=== PATIENT | male | born 1945 | race Caucasian/White ===

== ENCOUNTER 2020-03-20 05:05 | Inpatient (IN) ==
--- NOTE | 2020-02-27 21:26 | PAT Medication Instructions ---
Medication Instructions Date of Service February 27, 2020 Home Medications aspirin [Aspir-81] 81 mg PO DAILY mzussnvz-rjzbd-zyw3-C-diana-bor [Jmmrgnjxnty-Exzkf-QQT Complex] 2 tab PO DAILY metoprolol succinate 125 mg PO HS multivitamin 1 cap PO DAILY tamsulosin [Flomax] 0.4 mg PO QDL turmeric 500 mg PO DAILY STOP taking 2 weeks before surgery (or as soon as possible if surgery is within 2 weeks) xsvogato-wwgbq-uny3-C-diana-bor [Nooeorosbrt-Imjjx-RGN Complex] 2 tab PO DAILY turmeric 500 mg PO DAILY DO NOT take the morning of surgery multivitamin 1 cap PO DAILY Take morning of surgery With a small sip of water, OTHERWISE NOTHING TO EAT OR DRINK AFTER MIDNIGHT: aspirin [Aspir-81] 81 mg PO DAILY tamsulosin [Flomax] 0.4 mg PO QDL Take evening before surgery metoprolol succinate 125 mg PO HS Other Notes If you have any questions please call us at [phone] or [phone] or [phone] or [phone]
--- NOTE | 2020-02-29 14:30 | Anesthesiology Consultation ---
Date of Service February 29, 2020 Assessment & Plan (1) Encounter for pre-operative examination: - Awaiting review of preop testing (hgba1c). - Awaiting surgeon-ordered PCP clearance scheduled 03/01 (Dr. Reyes) Per PAT assessment on 02/28: Travel screen- Lives in [place]. Traveled to [facility] to visit family 2 weeks ago. Wears mask in public. DOS will be sufficiently >2 weeks after travel. No known COVID-19 positive contacts. No current COVID-19 related symptoms. No hx of COVID-19 testing. Patient scheduled for preop protocol COVID-19 testing on 03/15 ([facility]). Awaiting results. Chart Review Chart Review: Patient seen in Pre Admission Testing Teaching & Discussion Pre-Anesthesia Teaching/Discussion Notes: Instructed NPO after midnight before surgery,except medications with 15 cc of water. Medication instructions provided according to the PAT guidelines. History Surgery Operation Date: 03/20/20 12:25 Proposed Procedures p Right Anterior Total Hip Arthroplasty - David Swann DO Height/Weight Height: 5 ft 8 in Weight: 91.9 kg Allergies Allergy/AdvReac Type Severity Reaction Status Date / Time levothyroxine AdvReac Unknown dyspepsia Verified 02/29/20 14:50 Medications Home Medications Medication Instructions Recorded Confirmed Last Taken aspirin [Aspir-81] 81 mg PO DAILY 02/22/20 02/22/20 Unknown ejjzhynv-pxpte-pbe8-C-diana-bor 2 tab PO DAILY 02/22/20 02/22/20 Unknown [Cohcjutrxju-Ywzsu-SKC Complex] metoprolol succinate 125 mg PO QAM 02/22/20 02/29/20 Unknown multivitamin 1 cap PO DAILY 02/22/20 02/22/20 Unknown tamsulosin [Flomax] 0.4 mg PO QDL 02/22/20 02/22/20 Unknown turmeric 500 mg PO DAILY 02/22/20 02/22/20 Unknown Past Medical History Medical History HTN (hypertension) Osteoarthritis Thyroid disease borderline low, hx medication but since discontinued as patient "did not tolerate"/under surveillance Exercise / Class Metabolic Activity II 4-5 Yardwork/Stairs/Walk up hill Past Surgical History Surgical History History of colonoscopy History of hernia surgery [place] teeth removed Past Anesthesia History No Family Hx of Anesthesia Complications and Other (disorientation upon anesthesia emergence with remote surgery) History of PONV No Hx of PONV and No Hx of Motion Sickness Social History Smoking Status: Never smoker Do You Dip or Chew Tobacco: No Alcohol type: wine and hard liquor alcohol intake frequency: a few times a week Hx Substance Use: No substance use type: does not use Review of Systems Patient denies chest pain, shortness of breath, dyspnea on exertion, fever, chills, cough, wheezing, palpitations. Physical Exam Vital Signs VITALS BP 137/66 P 72 TEMP 98.0 SP02 95%RA RESP 16 PHYSICAL Full neck and c-spine range of motion. Full TMJ range of motion. TMD 3 finger breaths Mallampati Score 1 Dentition: intact, crown on molar Lungs: clear throughout to auscultation Cardiac: regular rate and rhythm, no murmurs noted Spine: normal Carotid arteries: negative bruit Extremities: no edema Testing Laboratory Results 02/29/20 15:00 02/29/20 15:00 PT 10.7 Seconds (9.0-12.0) 02/29/20 15:00 INR 1.0 (0.9-1.1) 02/29/20 15:00 APTT 30.5 Seconds (21.0-31.0) 02/29/20 15:00 Urine Color Yellow 02/29/20 15:00 Urine Appearance Clear (Clear) 02/29/20 15:00 Urine pH 5.0 (4.5-7.5) 02/29/20 15:00 Ur Specific Phelps 1.020 (1.000-1.030) 02/29/20 15:00 Urine Protein Negative (Negative) 02/29/20 15:00 Urine Glucose (UA) Negative (Negative) 02/29/20 15:00 Urine Ketones Negative (Negative) 02/29/20 15:00 Urine Nitrite Negative (Negative) 02/29/20 15:00 Ur Leukocyte Esterase Negative (Negative) 02/29/20 15:00 Blood Type O Positive 02/29/20 15:00 Antibody Screen NEGATIVE 02/29/20 15:00 02/29/20 TSH 4.640 (upper limit of normal, will forward thyroid studies to PCP for their reference) Free T4 1.09 Electrocardiogram Date: 02/29/20 NSR at 61bpm. unconfirmed report* Chest X-Ray Date: 02/29/20 Findings: + NAD
--- NOTE | 2020-02-29 15:27 | XRay Report ---
XR chest Pre-admission PA/Lat CLINICAL HISTORY: PAT preoperative COMPARISON STUDY: No previous studies for comparison. FINDINGS: The bones soft tissues and hemidiaphragms are normal. The cardiomediastinal silhouette is n ormal. The lungs are clear. The pulmonary vasculature is normal. IMPRESSION: Negative chest. ACT 112: Negative or not required by law. The above report was generated using voice recognition software. It may contain grammatical, syntax or spelling errors. Electronically signed by: Bandar Ralph M.D. 02/29/2020 3:26 PM
[2020-02-29 15:40] LABS: Appearance Urine Clear (Clear); Bilirubin Urine Negative (Negative); Blood Urine Negative (Negative); Color Urine Yellow; Glucose Urine UA Negative (Negative); Ketones Urine Negative (Negative); Leukocyte Esterase Urine Negative (Negative); Nitrite Urine Negative (Negative); Protein Urine Negative (Negative); Urobilinogen Urine Negative (Negative)
[2020-02-29 15:41] LABS: Basophils # (auto) 0.03 K/uL (0-0.2); Basophils % (auto) 0.4 %; Eosinophils # (auto) 0.21 K/uL (0-0.5); Eosinophils % (auto) 2.7 %; Hematocrit (blood only) 47.9 % (42-52); Immature Granulocytes # (auto) 0.02 K/uL (0.00-0.02); Immature Granulocytes % (auto) 0.3 %; Lymphocytes # (auto) 2.17 K/uL (1.2-3.4); Lymphocytes % (auto) 27.5 %; Mean Corpuscular Hemoglobin 30.9 pg (25-34); Mean Corpuscular Hgb Conc 35.5 g/dL (32-36); Mean Corpuscular Volume 87.1 fL (80-100); Mean Platelet Volume 10.2 fL (7.4-10.4); Monocytes # (auto) 0.67 K/uL (0.11-0.59); Monocytes % (auto) 8.5 %; Neutrophils # (auto) 4.79 K/uL (1.4-6.5); Neutrophils % (auto) 60.6 %; Platelet Count 204 K/uL (130-400); RDW Coefficient of Variation 12.8 % (11.5-14.5); RDW Standard Deviation 40.7 fL (36.4-46.3); White Blood Count 7.89 K/uL (4.8-10.8)
[2020-02-29 15:48] LABS: Albumin Level 3.9 gm/dl (3.4-5.0); BUN Creatinine Ratio 16.1 (10-20); Calcium 9.5 mg/dl (8.5-10.1); Creatinine Clr Calc Pharmacy 65.4 ml/min; Est GFR (African American) 77.1; Est GFR (Non-African American) 66.5; Potassium 4.4 mmol/L (3.5-5.1)
[2020-02-29 15:58] LABS: Partial Thromboplastin Ratio 1.1; Partial Thromboplastin Time 30.5 Seconds (21.0-31.0); Prothrombin Time 10.7 Seconds (9.0-12.0)
[2020-02-29 15:59] LABS: T4 Free Thyroxine 1.09 ng/dl (0.8-1.6); Thyroid Stimulating Hormone 4.64 uIu/ml (0.300-4.500)
[2020-03-01 06:44] LABS: Estimated Average Glucose 103 mg/dl; Hemoglobin A1C 5.2 % (4.5-5.6)
--- NOTE | 2020-03-01 15:22 | Electrocardiogram Report ---
Test Reason : Blood Pressure : / mmHG Vent. Rate : 061 BPM Atrial Rate : 061 BPM P-R Int : 150 ms QRS Dur : 086 ms QT Int : 440 ms P-R-T Axes : 040 042 008 degrees QTc Int : 442 ms Normal sinus rhythm Normal ECG No previous ECGs available Confirmed by Jignesh Meadows ([id number]) on 03/01/2020 3:22:25 PM Referred By: David Swann Confirmed By:Shakir Meadows
--- NOTE | 2020-03-18 10:50 | History & Physical Report ---
Date of Service March 20, 2020 Assessment & Plan (1) Degenerative joint disease of right hip: I have indicated the patient for right anterior total hip replacement. The risks, benefits and complications of surgery were explained to the patient which include but not limited to infection, acute blood loss, DVT/PE, injury to nerves, vessels, bone, soft tissue, arthrofibrosis, chronic pain, failure of the prosthesis, hip dislocation, leg length discrepancy, need for additional surgery, cardiac and pulmonary events and . The patient wished to proceed with surgery and informed consent was obtained at this time. We will plan for ASA BID post-operatively for DVT prophylaxis. Upon discharge the patient will be discharged home with home health services. Appropriate clearances by PCP were obtained. History of Present Illness Chief Complaint: Right hip pain/djd Primary Care Provider: Barbie Reyes The patient is a 75 year old male who presents with complaints of severe right hip pain and DJD. The patient has failed outpatient conservative treatments to this point which included NSAIDs, IA corticosteroid injection, PT and a home exercise/walking program. The patient's pain and limited function have progressed to the point where they severely hinder their activities of daily living and they no longer tolerate exercise programs. They are requesting to proceed with total hip replacement surgery. Allergies Allergy/AdvReac Type Severity Reaction Status Date / Time levothyroxine AdvReac Unknown dyspepsia Verified 02/29/20 14:50 Home Medications Home Medications Medication Instructions Recorded Confirmed Type aspirin [Aspir-81] 81 mg PO DAILY 02/22/20 03/20/20 History fvbnliwr-zyxle-yrf2-C-diana-bor 2 tab PO DAILY 02/22/20 03/20/20 History [Pkvbhglvsjp-Mkpej-YHE Complex] metoprolol succinate 125 mg PO QAM 02/22/20 03/20/20 History multivitamin 1 cap PO DAILY 02/22/20 03/20/20 History tamsulosin [Flomax] 0.4 mg PO QDL 02/22/20 03/20/20 History turmeric 500 mg PO DAILY 02/22/20 03/20/20 History Past Med/Surg History Medical History HTN (hypertension) Osteoarthritis Thyroid disease borderline low, hx medication but since discontinued as patient "did not tolerate"/under surveillance Surgical History History of colonoscopy History of hernia surgery [place] teeth removed Social History Preferred Language: [place] Communication Ability: Effective Procurement Technician Required: No Beliefs That Will Affect Care: Mormonism Mormonism Beliefs: ISLAM Current Living Situation: Spouse Other Information That Helps Us Care for You: No Feels Safe at Home: Yes Smoking Status: Never smoker Do You Dip or Chew Tobacco: No ; Hx Substance Use: No Review of Systems Review of Systems: All systems reviewed & are unremarkable except as noted in HPI & below Constitutional: as per Subjective / HPI Physical Exam Physical Exam: RLE NVSI +EHL/FHL/TA/GS SILT grossly, +2 DP pulse, compartments soft NT, limited painful ROM of the hip, antalgic gait. Constitutional: WD/WN, vitals as above Eyes: PERRL, conjunctivae normal, anicteric sclerae ENMT: external ear and nose normal, oropharynx normal Neck: trachea midline, no thyromegaly Respiratory: normal respiratory effort, lungs clear to auscultation Cardiovascular: RRR, no murmur, no edema Gastrointestinal (Abdomen): normal bowel sounds, soft, nontender, no hepatosplenomegaly Musculoskeletal: no cyanosis or clubbing, extremities motor strength 5/5 Skin: no rashes, warm and dry Neurologic: patellar DTR's 2+ bilat, sensation intact Psychiatric: A+Ox3, euthymic affect Lymphatic: no cervical or axillary lymphadenopathy Results & Data Results & Data ([facility]) Diagnostic Findings Multiple views of the hip demonstrates severe DJD with complete loss of the joint space. +osteophytes, +sclerosis, +subchondral cysts.
[2020-03-20] MEDS ORDERED: dexAMETHasone 4 MG TAB PO SCH (06:00)
[2020-03-20] MEDS ORDERED: LR 500ML BOLUS, THEN 15ML/HR IV SCH (06:00)
[2020-03-20] MEDS ORDERED: METOCLOPRAMIDE HCL 10 MG TABLET PO SCH (06:00)
[2020-03-20] MEDS ORDERED: CeleBREX 200 MG CAP PO SCH (06:00)
[2020-03-20] MEDS ORDERED: ROPIVACAINE 0.5% HCL/PF 150 MG, BUPIVACAINE 0.5% MPF 30 ML, EPINEPHrine 30MG/30ML (OR U... INFIL SCH (06:00)
[2020-03-20] MEDS ORDERED: ACETAMINOPHEN 500 MG TAB PO SCH (06:00)
[2020-03-20] MEDS ORDERED: TRANEXAMIC ACID 1,000 MG **IV Pre-op IV SCH (06:00)
[2020-03-20] MEDS ORDERED: FAMOTIDINE 20 MG TAB PO SCH (06:00)
[2020-03-20] MEDS ORDERED: CEFAZOLIN 2000MG 2,000 MG/15 ML SYR IV SCH (06:00)
[2020-03-20] MEDS ORDERED: GABAPENTIN 300 MG CAP PO SCH (06:00)
[2020-03-20] MEDS ORDERED: TRANEXAMIC ACID 1,000 MG **IV Intra-op IV SCH (06:00)
[2020-03-20] MEDS ORDERED: BUPIVACAINE 0.5 % 5 MG/1 ML PF 10ML VIAL ONE (06:26)
[2020-03-20] MEDS ORDERED: LIDOCAINE HCL 2% 2 ML VIAL/AMP(20MG/ML) INFIL ONE (06:40)
[2020-03-20] MEDS ORDERED: MIDAZOLAM HCL 1 MG/ML 2ML VIAL ONE (06:40)
[2020-03-20] MEDS ORDERED: PROPOFOL IV EMULSION 10 MG/ML 20 ML VIAL IV ONE (06:40)
[2020-03-20] MEDS ORDERED: fentaNYL citrate 100 MCG/2 ML VIAL ONE (06:41)
--- NOTE | 2020-03-20 06:42 | History & Physical Bridge Note ---
Date of Service March 20, 2020 History & Physical Bridge Note I have examined the patient, reviewed the History & Physical and in the interval since the performance of the History & Physical I have noted the following changes of clinical significance: no changes noted
[2020-03-20] MEDS ORDERED: ORTHO JOINT ANESTHETIC ONE (06:46)
[2020-03-20] MEDS ORDERED: BACITRACIN INJ 50,000 UNIT VIAL ONE (06:47)
[2020-03-20] MEDS ORDERED: ATROPINE SULFATE 0.1 MG/ML 10ML SYR IV PRN (06:57)
[2020-03-20] MEDS ORDERED: fentaNYL citrate 100 MCG/2 ML VIAL IV PRN (06:57)
[2020-03-20] MEDS ORDERED: ONDANSETRON INJ 2 MG/ML 2 ML VIAL IV PRN ×2 (06:57→10:49)
[2020-03-20] MEDS ORDERED: ePHEDrine sulfate 50 MG/ML AMP IV PRN (06:57)
--- NOTE | 2020-03-20 08:52 | Post Operative Brief Note ---
Immediate Post Op Note v1 Date of Surgery March 20, 2020 Pre & Post Diagnosis Operation Date: 03/20/20 07:00 Pre-Op Diagnosis: Unilateral Primary Osteoarthritis, Right Hip Post-Op Diagnosis: Unilateral Primary Osteoarthritis, Right Hip I identified the patient and participated in the time-out.: Yes Procedure Operation Date: 03/20/20 07:00 Actual Procedures p Right Anterior Total Hip Arthroplasty, Uncemented(Right) - David Swann DO Surgeon David Swann DO Painting Supervisor Abel Pacheco Estimated Blood Loss 150 Findings Consistent with Post-Op Diagnosis Fluids 1400 cc LR Specimens femoral head Anesthesia Type Spinal MAC Complications none Disposition Disposition: Recovery Room Overlapping Procedure I was present for: the critical portions of procedure. I was immediately available: during the entire case. Back up surgeon: was not required during procedure.
--- NOTE | 2020-03-20 08:55 | Operative Report ---
Post Operative Report Pre & Post Diagnosis Operation Date: 03/20/20 07:00 Pre-Op Diagnosis: Unilateral Primary Osteoarthritis, Right Hip Post-Op Diagnosis: Unilateral Primary Osteoarthritis, Right Hip I identified the patient and participated in the time-out.: Yes Procedure Operation Date: 03/20/20 07:00 Actual Procedures p Right Anterior Total Hip Arthroplasty, Uncemented(Right) - David Swann DO Surgeon David Swann DO Post Hole Digger Abel Pacheco Estimated Blood Loss 150 Findings Consistent with Post-Op Diagnosis Fluids 1500 cc LR Specimens femoral head Anesthesia Type Spinal MAC Complications none Disposition Disposition: Recovery Room Indications The patient is a 75-year-old male who presents with severe progressive right hip DJD who has failed outpatient conservative treatments. I indicated the patient for a anterior total hip replacement and the risks and benefits were explained in detail which include but not limited to infection, bleeding, blood clot, damage to surrounding bone, nerves, vessels, soft tissue, hip dislocation, failure of the prosthesis, leg length discrepancy, need for additional surgery and . The patient agreed to proceed with replacement of the hip and informed consent was obtained. Appropriate clearances were obtained. Description of Procedure COMPONENTS USED: [employer] hip system: Acetabulum size 56, femur size 7 high offset, femoral head 36+0, liner 5630, acetabular screw 25 mm x 1. DESCRIPTION OF PROCEDURE: Following satisfactory spinal anesthesia, the patient was placed supine on the OR table. The left leg was placed in the well leg farias and the right leg in the traction device. The right leg was prepared with ChloraPrep and draped sterilely. A surgical timeout was performed, patient identified and site cindy verified. Appropriate antibiotics were given. A standard anterior approach in the interval between the sartorius and tensor muscles was performed. Dissection was carried down through subcutaneous tissues. Electrocautery was utilized for hemostasis. Circumflex femoral vessels were identified, tied and ligated. The anterior capsular fat pad was removed and the capsulotomy was performed revealing the arthritic femoral neck and head. A femoral neck cut was made with reciprocating saw and the bone fragments removed. The acetabular self-retraining retractor was placed. Acetabular reaming was completed under fluoroscopic guidance, a 56 shell was impacted into an anatomic position and secured with a dome screw. Local anesthetic was placed and following irrigation, the polyethylene liner was placed. The femur was placed into position of external rotation, extension and adduction. Femoral canal was prepared up to the size 7 high offset. Trial reduction with a 36+0 neck length head showed good soft tissue tension, leg lengths restored, and good fit and fill of the proximal canal using fluoroscopic landmarks. The hip was dislocated. The trial component was removed. The final implant was placed. The hip was irrigated with sterile saline solution and reduced. A Betadine soak was performed. After 3 minutes, the hip was once more irrigated with copious sterile saline solution with bacitracin. Teri-incisional soft tissue was injected utilizing [place] [employer]ix which includes a combination of Ropivicaine 0.5% 150mg, Bupivicaine 0.5%/Epinephrine 1:200,000 30ml, Toradol 30mg, Dexamethasone 4mg, Ketamine 10mg, Clonidine 100mcg and NSS 30ml solution. The capsule was then closed with 1-0 Vicryl interrupted figure of eight sutures. The fascia was closed with a running suture of #1 Vicryl, the subcutaneous tissues with 2-0 Vicryl and the skin with a running subcuticular stitch of 3-0 V-Loc. Dermabond prineo and a dry dressing were applied. The patient tolerated the procedure well and was transported to PACU in stable condition. Due to the complex nature of the procedure, the entire surgery was performed with the operational assistance of Abel Pacheco PA-C. The assistant at surgery, under direct supervision, was involved in the actual performance of all aspects of the surgical procedure including patient positioning, hemostasis, tissue retraction, instrument management and wound closure. I attest to the content of the Intraoperative Record and any orders documented therein. Any exceptions are noted below.
--- NOTE | 2020-03-20 09:09 | Fluoroscopy Report ---
FL hip RT 1V CLINICAL HISTORY: RT ANTERIOR HIP COMPARISON STUDY: None. FLUOROSCOPY TIME: 35 seconds. FLUOROSCOPIC IMAGES: 2 FINDINGS: Fluoroscopy was provided during total right hip arthroplasty. The hardware is intact. There is no fracture. Acetabular screw is noted. Sponge marker shown on initial image is not shown on the second image. IMPRESSION: Fluoroscopy provided during total right hip arthroplasty. ACT 112: Negative or not required by law. Electronically signed by: Bk Castelan M.D. 03/20/2020 9:07 AM
--- NOTE | 2020-03-20 09:35 | XRay Report ---
XR hip 1V RT w pelvis CLINICAL HISTORY: IN PACU - A/P PELVIS and LATERAL HIP COMPARISON: None. DISCUSSION: Anatomic alignment post total right hip arthroplasty. Could contact between prosthetic an d underlying bone. Expected soft tissue postoperative change. IMPRESSION: Anatomic alignment post total right hip arthroplasty. ACT 112: Negative or not required by law. The above report was generated using voice recognition software. It may contain grammatical, syntax or spelling errors. Electronically signed by: Bandar Ralph M.D. 03/20/2020 9:33 AM
--- NOTE | 2020-03-20 10:12 | Anesthesiology Progress Note ---
Date of Service March 20, 2020 Anesthesia Post Procedure Vital Signs Vital Signs: Temp Pulse Pulse Resp BP BP Pulse Ox 03/20/20 10:00 72 16 131/65 95 03/20/20 09:50 71 15 127/64 95 03/20/20 09:40 72 20 114/63 93 03/20/20 09:30 74 16 123/66 95 03/20/20 09:20 79 14 101/64 95 03/20/20 09:14 36.4 C L 83 12 123/75 94 03/20/20 05:57 36.7 C 70 18 150/83 H 97 Pain Intensity Right Hip: Pain Intensity: 7 Transfer of Care Handoff Completed per policy Notes Mental Status: alert / awake / arousable and participated in evaluation Nausea / Vomiting: adequately controlled Pain: adequately controlled Airway Patency, RR, SpO2: stable & adequate BP & HR: stable & adequate Hydration State: stable & adequate Neuraxial Anesthesia: was administered and sensory block is resolving Anesthetic Complications: no major complications apparent and Pt Satisfied with anesthetic care
[2020-03-20] MEDS ORDERED: NALOXONE HCL 0.4 MG/1 ML VIAL/CARP IV PRN (10:49)
[2020-03-20] MEDS ORDERED: METOCLOPRAMIDE HCL INJ 5 MG/ML 2 ML VIAL IV PRN (10:49)
[2020-03-20] MEDS ORDERED: HYDROmorphone INJ 0.5 MG/0.5 ML SYR IV PRN (10:49)
[2020-03-20] MEDS ORDERED: OXYCODONE HCL IR 5 MG TAB (IMMEDIATE RELEASE) PO PRN (10:49)
[2020-03-20] MEDS ORDERED: bisacodyL 10 MG SUPP PR PRN (10:49)
[2020-03-20] MEDS ORDERED: MAGNESIUM HYDROXIDE SUSP 30 ML UDC PO PRN (10:49)
[2020-03-20] MEDS: TAMSULOSIN HCL 0.4 MG CAP PO SCH (12:21)
[2020-03-20] MEDS: METOPROLOL SUCC 25MG EXT REL TAB PO SCH (12:21)
[2020-03-20] MEDS: MULTIVITAMIN TAB PO SCH (12:21)
[2020-03-20] MEDS: SODIUM CHLORIDE 0.9% 1000ML 1,000 ML IV SCH ×2 (12:21→21:23)
[2020-03-20] MEDS: KETOROLAC TROMETHAMINE 15 MG/ML VIAL IV SCH ×3 (12:21→22:31)
[2020-03-20] MEDS: DOCUSATE SODIUM 100 MG CAP PO SCH ×2 (12:26→21:24)
[2020-03-20] MEDS: ACETAMINOPHEN 500 MG TAB PO SCH ×2 (14:00→21:24)
[2020-03-20] MEDS: CEFAZOLIN 2000MG 2,000 MG/15 ML SYR IV SCH ×2 (16:23→23:40)
--- NOTE | 2020-03-20 18:34 | Orthopedic Progress Note ---
Date of Service March 20, 2020 Assessment & Plan (1) Degenerative joint disease of right hip: s/p R anterior HARMAN POD#1 -ancef x 24 -DVT ppx: SCDs, TEDs, ASA BID -WBAT RLE -PT/OT -PO XR demonstrates well aligned well fixed prothesis without fracture/dislocation -am labs - as above, hgb 14.1 -DC planning - home with HH Admission and Anticipated Discharge Date Admission Date: March 20, 2020 Subjective Post Operative Progress Note Patient seen sitting in chair at bedside, comfortable, denies complaints, pain well controlled, no acute issues. Denies F/C/N/V/SOB/CP. Review of Systems Review of Systems: All systems reviewed & are unremarkable except as noted in HPI & below Constitutional: as per Subjective / HPI Physical Exam Physical Exam: RLE NVSI +EHL/FHL/TA/GS SILT grossly, +2 DP pulse, compartments soft NT, dressing cdi. Constitutional: WD/WN, vitals as above Results & Data ([facility]) Vital Signs (Past 12 Hours) Vital Signs Temp Pulse Pulse Resp BP Pulse Ox 03/20/20 15:14 36.6 C 84 16 130/78 95 03/20/20 13:37 36.4 C L 80 18 139/81 95 03/20/20 12:37 36.4 C L 73 18 123/75 94 03/20/20 11:25 36.7 C 69 17 119/71 96 03/20/20 10:50 36.8 C 71 17 151/72 H 97 03/20/20 10:25 36.3 C L 75 18 120/76 94 03/20/20 10:10 36.4 C L 72 16 138/66 95 03/20/20 10:00 72 16 131/65 95 03/20/20 09:50 71 15 127/64 95 03/20/20 09:40 72 20 114/63 93 03/20/20 09:30 74 16 123/66 95 03/20/20 09:20 79 14 101/64 95 03/20/20 09:14 36.4 C L 83 12 123/75 94 Laboratory Results 03/21/20 03/21/20 Range/Units 05:18 05:18 WBC 17.11 H (4.8-10.8) K/uL RBC 4.45 L (4.7-6.1) M/uL Hgb 14.1 (14.0-18.0) g/dL Hct 38.3 L (42-52) % MCV 86.1 (80-100) fL MCH 31.7 (25-34) pg MCHC 36.8 H (32-36) g/dL RDW Std Deviation 40.3 (36.4-46.3) fL RDW Coeff of Kunal 12.7 (11.5-14.5) % Plt Count 174 (130-400) K/uL MPV 9.8 (7.4-10.4) fL Immature Gran % (Auto) 0.2 % Neut % (Auto) 85.3 % Lymph % (Auto) 7.1 % [place] % (Auto) 7.4 % Eos % (Auto) 0.0 % Baso % (Auto) 0.0 % Neut # (Auto) 14.60 H (1.4-6.5) K/uL Lymph # (Auto) 1.21 (1.2-3.4) K/uL [place] # (Auto) 1.26 H (0.11-0.59) K/uL Eos # (Auto) 0.00 (0-0.5) K/uL Baso # (Auto) 0.00 (0-0.2) K/uL Immature Gran # (Auto) 0.04 H (0.00-0.02) K/uL Sodium 140 (136-145) mmol/L Potassium 4.1 (3.5-5.1) mmol/L Chloride 109 H (98-107) mmol/L Carbon Dioxide 26 (21-32) mmol/L Anion Gap 5.0 (3-11) BUN 21 H (7-18) mg/dl Creatinine 1.09 (0.6-1.4) mg/dl Est Cr Clr Drug Dosing 65.4 ml/min Est GFR ( Amer) 77.1 Est GFR (Non-Af Amer) 66.5 BUN/Creatinine Ratio 19.2 (10-20) Glucose 122 H (70-99) mg/dl Calcium 8.0 L (8.5-10.1) mg/dl
[2020-03-20] MEDS ORDERED: SENNA 8.6 MG TAB PO SCH (21:00)
[2020-03-20] MEDS ORDERED: Nursing to Pharmacy Communication SCH (22:15)
[2020-03-21] MEDS: KETOROLAC TROMETHAMINE 15 MG/ML VIAL IV SCH (05:20)
[2020-03-21] MEDS: ACETAMINOPHEN 500 MG TAB PO SCH (05:21)
[2020-03-21 05:34] LABS: Hematocrit (blood only) 38.3 % (42-52); Hemoglobin 14.1 g/dL (14.0-18.0); Immature Granulocytes # (auto) 0.04 K/uL (0.00-0.02); Immature Granulocytes % (auto) 0.2 %; Lymphocytes # (auto) 1.21 K/uL (1.2-3.4); Lymphocytes % (auto) 7.1 %; Mean Corpuscular Hemoglobin 31.7 pg (25-34); Mean Corpuscular Hgb Conc 36.8 g/dL (32-36); Mean Corpuscular Volume 86.1 fL (80-100); Mean Platelet Volume 9.8 fL (7.4-10.4); Monocytes # (auto) 1.26 K/uL (0.11-0.59); Monocytes % (auto) 7.4 %; Neutrophils % (auto) 85.3 %; Platelet Count 174 K/uL (130-400); RDW Coefficient of Variation 12.7 % (11.5-14.5); RDW Standard Deviation 40.3 fL (36.4-46.3); Red Blood Count 4.45 M/uL (4.7-6.1); White Blood Count 17.11 K/uL (4.8-10.8)
[2020-03-21 06:04] LABS: BUN Creatinine Ratio 19.2 (10-20); Creatinine Clr Calc Pharmacy 65.4 ml/min; Est GFR (African American) 77.1; Est GFR (Non-African American) 66.5; Potassium 4.1 mmol/L (3.5-5.1)
[2020-03-21] MEDS: DOCUSATE SODIUM 100 MG CAP PO SCH ×2 (07:37→07:38)
[2020-03-21] MEDS: METOPROLOL SUCC 25MG EXT REL TAB PO SCH (07:37)
[2020-03-21] MEDS: MULTIVITAMIN TAB PO SCH (07:38)
[2020-03-21] MEDS ORDERED: ASPIRIN 325 MG ECTAB PO SCH (09:00)
[2020-03-21] MEDS: TAMSULOSIN HCL 0.4 MG CAP PO SCH (11:56)
--- NOTE | 2020-03-21 12:32 | Discharge Summary ---
Date of Service March 21, 2020 Admission HPI Per Admitting Provider The patient is a 75 year old male who presents with complaints of severe right hip pain and DJD. The patient has failed outpatient conservative treatments to this point which included NSAIDs, IA corticosteroid injection, PT and a home exercise/walking program. The patient's pain and limited function have progressed to the point where they severely hinder their activities of daily living and they no longer tolerate exercise programs. They are requesting to proceed with total hip replacement surgery. Principal Diagnosis Right anterior total hip replacement -Right hip DJD Discharge Exam RLE NVSI +EHL/FHL/TA/GS SILT grossly, +2 DP pulse, compartments soft NT, dressing cdi. Constitutional WD/WN, vitals as above Discharge Data Allergies Allergy/AdvReac Type Severity Reaction Status Date / Time levothyroxine AdvReac Unknown dyspepsia Verified 02/29/20 14:50 Consultations 03/21/20 08:00 Consult Case Management - Discharge Planning Routine Procedures Performed Operation Date: 03/20/20 07:00 Actual Procedures p Right Anterior Total Hip Arthroplasty, Uncemented(Right) - David Swann DO Ordered Studies 03/20/20 07:00 FL fluoroscopy <1hr Routine FL hip RT 1V Routine Hospital Course (1) Degenerative joint disease of right hip: The patient is a 75 -year-old male who presents with long standing history of severe right hip DJD and failed outpatient conservative treatments. The patient's symptoms have progressed to the point where it has been difficult to perform even normal activities of daily living. I indicated the patient for a right anterior total hip arthroplasty, the risks, benefits and complications of the procedure include but not limited to infection, bleeding, damage to bone, nerves, vessels, surrounding soft tissue, may develop blood clots, loss of function, leg length discrepancy, dislocation, failure of the components, loosening of the components, the need for additional surgery and . The patient wished to proceed with surgery at this time and informed consent was obtained. Hospital Course: On 03/20/20 the patient was taken to the operating room, adequate anesthesia administered and underwent a right anterior total hip arthroplasty. The patient tolerated the procedure well and was taken to the PACU in stable condition. Post-operatively the patient was started on a DVT ppx medication and given appropriate IV antibiotics. Consults were placed to physical therapy, occupational therapy and case management. On POD#1, the patient did well overnight and their pain was well controlled. Labs were drawn and the Hgb was 14.1. The patient progressed well with PT. Dressings were changed at this time and the incision was clean, dry and intact. The patients hospital stay was relatively uneventful and they were deemed stable by the orthopedic team and consultants to be discharged home with HH on 03/21/20. Discharge Instructions: Upon discharge the patient may weight bear as tolerates through their operative extremity. They were instructed to keep the incision clean and dry at all times. The patient may shower but should not submerge the incision, avoid bathing, pools and hot tubes. The patient was given a script for pain medication and should take as instructed. The patient was given a script for DVT ppx 325mg ASA BID and should take as directed. The patient was instructed to not drive or travel for long distances until cleared to do so. If the patient develops any symptoms of fevers, chills, nausea, vomiting, increased redness, swelling, pain or drainage from the surgical site, they should notify the office and/or proceed to the nearest emergency room. The patient should follow up in 10-14 days after surgery for their routine post-operative follow-up appointment and should call the office to confirm the date and time. s/p R anterior HARMAN POD#1 -ancef x 24 -DVT ppx: SCDs, TEDs, ASA BID -WBAT RLE -PT/OT -PO XR demonstrates well aligned well fixed prothesis without fracture/dislocation -am labs - as above, hgb 14.1 -DC planning - home with Total Time Total Time Spent Total Time Spent (In Minutes): 30 Discharge Plan Discharge Items Patient Disposition: Home - Home Health Services Reason For Visit: Unilateral Primary Osteoarthritis, Right Hip Discharge Diagnosis: Right anterior total hip replacement Activity: Per Instructions section Lifting: Wait until after follow-up appointment Bathing: Keep incision dry Bathing Comment: No bathing, pools or hot tubs. Sexual Activity: Wait until after follow-up appointment Exercise/Sports: Wait until after follow-up appointment Driving/Machine Use: No driving Weightbearing: Full weightbearing Non-emergency contact: Primary Care Provider and Surgeon Call non-emergency contact if: you have any medication questions, your symptoms worsen, your pain is not controlled, your pain is worsening, your pain is unusual for you, your pain is concerning for you, you have a fever, your temperature is above 101, your wound has increased redness, your wound has increased drainage and your wound pain has increased Follow-up/Referrals: Barbie Reyes M.D. [Primary Care Provider] - Diet: Regular Addtl Attending Provider Instructions: ACTIVITY RECOMMENDATIONS: SELF CARE INSTRUCTIONS AFTER TOTAL HIP REPLACEMENT : Direct Anterior Approach Until the incision and soft tissues around your hip have healed, there is a possibility that the hip prosthesis could dislocate. A. Hip flexion ( Up & Down out of chair or steps ) may be difficult. This is normal. B. Numbness in front of the thigh is also normal for a few weeks. C. Use hand rails when walking on stairs. D. Wear low heeled shoes with non-slip soles. E. Be sure that your floors are free of things that could trip you - throw rugs, electrical cords, small objects. Avoid wet and waxed floors, especially with crutches and canes. F. Try to walk several times a day with rest periods between. G. Continue with all the exercises taught to you in the hospital. Again, make walking a part of your daily routine. SPECIAL CARE INSTRUCTIONS: VERY IMPORTANT TO READ AND REVIEW A. You may still be at risk for phlebitis and blood clots. 1. Wear surgical stockings (GRETTA hose) for 2 weeks after surgery to improve circulation and reduce swelling. 2. Take Aspirin 325mg twice daily for 4 weeks or as directed by your doctor. This is your blood thinner. 3. High risk patients may be prescribed a stronger blood thinner if necessary. 4. If you are on Coumadin normally, your family doctor/monitor car operator should monitor your blood work. Expect a phone call the day of or the day after bloodwork is drawn to adjust your dosage. B. You must take antibiotics before having dental work, bladder, bowel and other surgery. Your doctor will provide you with a permanent card to carry describing precautions. C. Call [facility] if you have a fever, redness or swelling around the incision, cloudy drainage from incision, or sudden increase in pain in your hip, not relieved by your regular pain medication. D. Please call the office at if you have any concerns or questions about your operation or recovery. * YOU MAY SHOWER, NO TUB BATHS UNTIL CLEARED BY YOUR DOCTOR. - Keep an extra close eye on the top portion of your incision. Be sure to keep clean & dry. * WEAR GRETTA HOSE 20 HOURS PER DAY FOR 2 WEEKS. * YOU MAY PROGRESS FROM A WALKER, TO A CANE, TO INDEPENDENT AT YOUR OWN PACE. * MOST PATIENTS WILL HAVE HOME NURSING FOR THERAPY. IF YOU DECIDE TO DO OUTPATIENT PHYSICAL THERAPY, PLEASE SCHEDULE THIS 3 TIMES PER WEEK. * DERMABOND Prineo- This is a mesh tape dressing that is covered with glue. It should remain in place until the incision is properly healed, usually 10-14 days. This dressing is designed to naturally slough off. You may trim the excess mesh tape as it peels off. Incision may be briefly wet in a shower. Dry immediately by blotting with a clean, dry towel. Do not bath or swim until instructed by your doctor. Do not scratch, rub, or pick at the dressing. Do not apply any topical ointments or lotions until dressing is completely removed and/or instructed by your doctor. There may be a small piece of suture material at one end of your incision. Do not pull or trim this. If it is bothersome or catching on clothing, you may cover it with a band-aid. FOLLOW UP VISIT: If appointment is not already scheduled: Please call [facility] to make a follow-up appointment for 2 weeks after your surgery at . Pending Studies at Discharge: No Stand-Alone Forms: My wavecatch, Smoking Cessation Medications and DC Order Prescriptions: New celecoxib [Celebrex] 200 mg Capsule 200 mg PO BID PRN (Reason: pain/inflammation) Qty: 28 RF: 0 acetaminophen 500 mg Tablet 1,000 mg PO Q8 PRN (Reason: pain/fevers) Qty: 90 RF: 0 aspirin [Ecotrin] 325 mg Tablet,Delayed Release (Dr/Ec) 325 mg PO BID Qty: 56 RF: 0 oxycodone 5 mg Tablet 5 mg PO Q6H MDD 4 PRN (Reason: pain) Qty: 30 RF: 0 sennosides 17.2 mg tablet 17.2 mg PO HS PRN (Reason: constipation) Qty: 28 RF: 0 Continued metoprolol succinate 100 mg Tablet Extended Release 24 Hr 125 mg PO QAM RF: 0 tamsulosin [Flomax] 0.4 mg Capsule 0.4 mg PO QDL RF: 0 multivitamin Capsule 1 cap PO DAILY RF: 0 Tcwtbjuakit-Yposd-DGG Complex 463-537-07-0.5 mg Tablet 2 tab PO DAILY RF: 0 turmeric 400 mg Capsule 500 mg PO DAILY RF: 0 Discontinued aspirin [Aspir-81] 81 mg Tablet,Delayed Release (Dr/Ec) 81 mg PO DAILY RF: 0 Discharge Orders: Discharge Order (Routine); Ordered 03/21/20 Ordered By: David Swann Admission Data Admit Date/Time: 03/20/20 09:19 Attending Provider: David Swann Admit Provider: David Swann Primary Care Provider: Barbie Reyes Other Interventions: Discharge Summary Assessment (RN) Last Done: 03/21/20 12:58 DC Date/Time DO NOT enter until pt leaves facility: 03/21/20 13:37
[2020-03-21] MEDS ORDERED: CeleBREX 200 MG CAP PO SCH (21:00)
== END 2020-03-21 13:37 | disposition home health service (06) | DRG 470 ==
LOC: ASU 05:05 → 3E 09:19